=== PATIENT | male | born 1965 | race Caucasian/White ===

== ENCOUNTER 2017-11-18 07:33 | Day surgery (SDC) | payer OTHER ==
[~2017-11-18] VITALS: Ht 172.7 cm; Wt 106.6 kg
[~2017-11-18 07:33] MED LIST: ASPI81EC PO; ENOX80I SUBQ; FEXPSEER; LORA10ER; TRAM50 PO; WARF5 PO
== END 2017-11-18 08:47 | disposition home or self-care (01) ==
LOC: ORSCMMR 07:33 → ORD 08:30 → ORSCMMR 08:30
PROVIDERS: Internal Medicine Gastroenterology
PROC: 0DJD8ZZ Inspection of Lower Intestinal Tract, Via Natural or Artificial Opening Endoscopic (ICD-10-PCS; principal; 2017-11-18 08:30)
DX: Z12.11 Encounter for screening for malignant neoplasm of colon (principal); K64.8 Other hemorrhoids; K57.30 Diverticulosis of large intestine without perforation or abscess without bleeding; Z86.718 Personal history of other venous thrombosis and embolism; Z79.01 Long term (current) use of anticoagulants
CPT/HCPCS: J7120